=== PATIENT | male | born 1965 | race Caucasian/White ===

== ENCOUNTER → 2017-05-20 | Outpatient (CLI) | payer BC ==
--- NOTE | 2017-05-20 17:06 | PCVCIMAG ---
APPROVED REPORT Exam: Stress Echocardiogram Indication: Hypertension, Abnormal Calcium Score Patient Location: Echo lab Stress Nurse: Janell Johansen RN Status: routine HR: 69 bpm Rhythm: NSR Procedure The patient underwent an Exercise Stress Test using the Taye Protocol. Blood pressure, heart rate, and EKG were monitored. An Echocardiogram was performed by groundwater monitoring technician in four stages in quad fashion. At peak stress, four selected images were obtained and placed side by side with resting images for comparison. Stress Test Details Stress Test: Exercise stress testing was performed using a Taye protocol. HR Resting HR: 69 bpmMax Heart Rate (APMHR): 166 bpm Max HR Achieved: 169 bpmTarget HR (85% APMHR): 141 bpm % of APMHR: 101 HR response to stress: Normal HR response to stress BP Resting BP: 180/110 mmHg Max BP: 192/88 mmHg ECG Resting ECG: Sinus Rhythm Stress ECG: Sinus Rhythm Recovery ECG: Sinus Rhythm Clinical Reason for Termination: Maximal effort Stress Symptoms: Dyspnea Exercise duration: 8 min 10 sec Highest Stage Achieved: Stage 2: 2.5 mph at 12% grade. Exercise capacity: 10.40 METs Overall Exercise Capacity for Age: Average Pre-Stress Echo The resting Echocardiogram showed normal left ventricular contractility with an estimated Ejection Fraction of about >55%. Normal wall motion in all segments on baseline images. Post-Stress Echo The stress Echocardiogram showed normal left ventricular contractility with an estimated Ejection Fraction of about 55-60%. Normal augmentation of wall motion in all segments on post stress images. Conclusion Clinical Response: Non-ischemic Exercise Capacity: Average Stress ECG Response: Non-ischemic Stress Echo Images: Non-ischemic
--- NOTE | 2017-05-20 20:43 | PCVCIMAG ---
EXAM: BILATERAL CAROTID DUPLEX INDICATION: Carotid Occlusive Disease. FINDINGS: Doppler Measurements (centimeters per second): RIGHT: Peak CCA-94, Peak ECA-68, Diastolic ICA-36, Peak ICA-90, ICA/CCA Ratio-1.0. LEFT: Peak CCA-104, Peak ECA-78, Diastolic ICA-40, Peak ICA-80, ICA/CCA Ratio-0.8. RIGHT CAROTID: The carotid bulb has no significant plaque. The proximal internal carotid artery shows no significant stenosis. The common carotid artery shows no significant stenosis. The external carotid artery shows no significant stenosis. LEFT CAROTID: The carotid bulb has no significant plaque. The proximal internal carotid artery shows no significant stenosis. The common carotid artery shows no significant stenosis. The external carotid artery shows no significant stenosis. Antegrade flow in both vertebral arteries. IMPRESSION: No significant stenosis of the right internal carotid artery with no significant plaque. No significant stenosis of the left internal carotid artery with no significant plaque. LOC:[place] [id number]
== END | disposition home or self-care (01) ==
LOC: PCVCIMAG 14:10
PROVIDERS: ATTEND Internal Medicine Cardiovascular Disease
DX: I10 Essential (primary) hypertension (principal); I25.10 Atherosclerotic heart disease of native coronary artery without angina pectoris; E78.5 Hyperlipidemia, unspecified; I77.89 Other specified disorders of arteries and arterioles; R09.89 Other specified symptoms and signs involving the circulatory and respiratory systems; Z79.82 Long term (current) use of aspirin
CPT/HCPCS: 93325; 93351; 93880

== ENCOUNTER → 2017-07-27 | Outpatient (CLI) | payer BC ==
--- NOTE | 2017-07-27 16:42 | PCVCIMAG ---
APPROVED REPORT Study performed: 07/27/2017 14:30:01 EXAM: Comprehensive 2D, Doppler, and color-flow Echocardiogram Patient Location: Echo lab Status: routine BSA: 2.30 HR: 78 bpmBP: 152/86 mmHg Rhythm: NSR Other Information Study Quality: Adequate Risk Factors: Cardiac Risk Factors: HTN Indications Atrial Fibrillation CAD Hypertension/HDD 2D Dimensions LVEF(%): 55.96 (>50%) IVSd: 9.03 (7-11mm)LVOT Diam: 25.31 (18-24mm) LVDd: 52.20 mm PWd: 9.40 (7-11mm)Ascending Ao: 37.94 (22-36mm) LVDs: 36.85 (25-40mm) Left Atrium: 32.19 (27-40mm) LV Single Plane 4CH: 56.04 % LV Single Plane 2CH: 57.66 %Fuentes's LVEF: 56.85 % Biplane EF: 57.2 % Volumes Left Atrial Volume (Systole) Single Plane 4CH: 50.97 mLSingle Plane 2CH: 75.60 mL Biplane LA Volume: 69.00 mLLA ESV Index: 30.00 mL/m2 Aortic Valve AoV Peak Duke.: 1.79 m/s AO Peak Gr.: 12.81 mmHgLVOT Max P.93 mmHg LVOT Max V: 0.99 m/s ANN MARIE Vmax: 2.79 cm2 Mitral Valve E/A Ratio: 1.2 MV Decel. Time: 103.23 ms MV E Max Duke.: 0.81 m/s MV A Duke.: 0.66 m/s MV PHT: 29.94 ms IVRT: 96.89 ms TDI E/Lateral E': 11.57E/Medial E': 10.13 Medial E' Duke.: 0.08 m/s Lateral E' Duke.: 0.07 m/s Pulmonary Valve PV Peak Duke.: 1.02 m/sPV Peak Gr.: 4.15 mmHg Pulmonary Vein P Vein S: 0.74 m/sP Vein A: 0.32 m/s P Vein D: 0.58 m/sP Vein A Dur.: 79.6 msec P Vein S/D Ratio: 1.28 Tricuspid Valve TV Vmax: 0.84 m/s Left Ventricle The left ventricle is normal size. There is normal LV segmental wall motion. There is normal left ventricular wall thickness. Left ventricular systolic function is normal. The left ventricular ejection fraction is within the normal range. LVEF is 55-60%. The left ventricular diastolic function is normal. Right Ventricle The right ventricle is normal size. The right ventricular systolic function is normal. Atria The left atrium size is normal. The right atrium size is normal. Aortic Valve The aortic valve is normal in structure. No aortic regurgitation is present. There is no aortic valvular stenosis. Mitral Valve The mitral valve is normal in structure. There is no mitral valve regurgitation noted. No evidence of mitral valve stenosis. Tricuspid Valve The tricuspid valve is normal in structure. There is no tricuspid valve regurgitation noted. Pulmonic Valve The pulmonary valve is normal in structure. Trace pulmonic regurgitation. Great Vessels The aortic root is normal in size. The ascending aorta is normal in size. IVC is normal in size and collapses with >50% inspiration Pericardium There is no pericardial effusion. There is no pleural effusion. <Conclusion> The left ventricle is normal size. There is normal left ventricular wall thickness. LVEF is 55-60%. The left ventricular diastolic function is normal. The right ventricle is normal size. The left atrium size is normal. The aortic valve is normal in structure. There is no mitral valve regurgitation noted. There is no tricuspid valve regurgitation noted. There is no pericardial effusion.
== END | disposition home or self-care (01) ==
LOC: PCVCIMAG 14:19
PROVIDERS: ATTEND Internal Medicine Cardiovascular Disease
DX: I37.1 Nonrheumatic pulmonary valve insufficiency (principal); I48.0 Paroxysmal atrial fibrillation; I25.10 Atherosclerotic heart disease of native coronary artery without angina pectoris; I25.84 Coronary atherosclerosis due to calcified coronary lesion; I10 Essential (primary) hypertension; E78.00 Pure hypercholesterolemia, unspecified; R93.1 Abnormal findings on diagnostic imaging of heart and coronary circulation; G47.30 Sleep apnea, unspecified; K21.9 Gastro-esophageal reflux disease without esophagitis; Z79.82 Long term (current) use of aspirin; Z79.899 Other long term (current) drug therapy
CPT/HCPCS: 93005; 93306; G0463